=== PATIENT | male | born 1965 | race Caucasian/White ===

== ENCOUNTER 2023-11-30 14:29 | Emergency (ER) | payer OTHER, SELFPAY ==
--- NOTE | ~2023-11-30 | CT_ITS ---
EXAMINATION: CT CERVICAL SPINE WITHOUT CONTRAST CLINICAL INFORMATION: Mechanical fall, cervical spine injury and pain COMPARISON: None available. TECHNIQUE: Multiple 3.0 and 0.6 mm axial images were obtained from base of skull to T1 levels without IV contrast enhancement. Sagittal and coronal 2.0 mm bone window images were reconstructed from axial image data. This CT examination was performed using dose optimization techniques as appropriate, variously including the following: *Automated exposure control *Adjustment of mA and/or kV according to patient size (this includes techniques or standardized protocols for targeted exams where dose is matched to indication/reason for exam; i.e. extremities or head) *Use of iterative reconstruction technique DLP: 790.16 mGy-cm FINDINGS: C1/C2: Bony structures are intact with normal alignment. There is no spinal stenosis. C2/C3: Bony structures are intact with normal alignment. There is no spinal stenosis. Bilateral C2/C3 neuroforamina are patent. Bilateral apophyseal joints are intact with normal alignment. C3/C4: Bony structures are intact with normal alignment. There is no spinal stenosis. Bilateral C3/C4 neuroforamina are patent. Bilateral apophyseal joints are intact with normal alignment. C4/C5: Bony structures are intact with normal alignment. There is no spinal stenosis. Bilateral C4/C5 neuroforamina are patent. Bilateral apophyseal joints are intact with normal alignment. C5/C6: Bony structures are intact with normal alignment. There is no spinal stenosis. Bilateral C5/C6 neuroforamina are patent. Bilateral apophyseal joints are intact with normal alignment. C6/C7: Bony structures are intact with normal alignment. There is no spinal stenosis. Bilateral C6/C7 neuroforamina are patent. Bilateral apophyseal joints are intact with normal alignment. C7/T1: Bony structures are intact with normal alignment. There is no spinal stenosis. Bilateral C7/T1 neuroforamina are patent. Bilateral apophyseal joints are intact with normal alignment. CT/CT cervical spine wo IV con IMPRESSION: 1. Normal CT scan of the cervical spine. No cervical fracture or dislocation is seen. Fleischner guidelines were followed.
--- NOTE | ~2023-11-30 | CT_ITS ---
EXAMINATION: CT HEAD WITHOUT CONTRAST (STROKE PROTOCOL) CLINICAL INFORMATION: Stroke protocol. Left hemiparesis, possible head injury COMPARISON: None available. TECHNIQUE: Contiguous axial imaging was performed from the skull base to vertex without intravenous administration of contrast. This CT examination was performed using dose optimization techniques as appropriate, variously including the following: *Automated exposure control *Adjustment of mA and/or kV according to patient size (this includes techniques or standardized protocols for targeted exams where dose is matched to indication/reason for exam; i.e. extremities or head) *Use of iterative reconstruction technique DLP: 817.05 mGy-cm FINDINGS: Ventricles, sulci and cisterns are prominent. There is no midline shift, no abnormal intra- or extra- axial fluid accumulation. Crowley and white matter differentiation is normal. Bone window images show no evidence of skull fracture. CT/CT head for stroke IMPRESSION: 1. Mildly atrophic appearance of brain. 2. No intracranial hemorrhage or skull fracture is seen. 3. No evidence of space occupying lesion could be found. 4. The current plain CT scan of the brain shows no diagnostic evidence of acute cerebral infarction. This critical result was discussed with Dr. Fidel Hagen at 1458 hours on 11/30/2023. It was ascertained that the content and urgency of the report was understood at the time of direct communication.
--- NOTE | 2023-11-30 14:35 | ED_ITS ---
HPI - General Adult General Chief complaint: Stroke Stated complaint: STOKE ALERT,SLUR/L DEFICIT,SYNCOPE PER EMS Time Seen by Provider: 11/30/23 14:35 History of Present Illness HPI narrative: The patient is a 58-year-old male with a history of type 2 diabetes who also has a history of depression who is currently an inpatient at the [facility]. He was admitted to that hospital from the emergency room at [facility] 3 or 4 days ago. He had been depressed and made significant lacerations to his left arm requiring staple closures. Today the patient stood up after urinating and felt lightheaded and collapsed. Staff at [facility] thought that there was some difficulty speaking and left- sided weakness. An ambulance was called and he was brought to the hospital. The patient was quite vague about what he thought had happened. He thought he probably did not hit his head but was not sure. He does not feel that he has significant neck pain. He thought that perhaps he had a funny sensation throughout his body but he does not really feel like he definitely had unilateral weakness. The patient says that he has had similar episodes of lightheadedness in the past and sometimes he has fainted before. Related Data Allergies Allergy/AdvReac Type Severity Reaction Status Date / Time No Known Allergies Allergy Verified 11/30/23 15:31 Review of Systems 2 Review of Systems: Yes all other systems are reviewed and are negative [facility] Social History Social History Advance Directives: No Advance Directives Information Provided: No Do you have a plan to hurt others: No Plan Physical Exam ED Vital Signs: Vital Signs - 24 hr 11/30/23 15:20 11/30/23 15:36 Temperature 97.6 F 97.2 F Pulse Rate 93 91 Respiratory Rate 17 16 Blood Pressure 128/74 103/79 Pulse Oximetry 94 98 Oxygen Delivery Method Room Air Room Air BMI result Body Mass Index 44.4 Const Other: The patient is an obese, somewhat chronically ill-appearing 58-year-old who was awake and alert. He had a very vague demeanor. HENMT Other: No definite facial asymmetry. Tongue was midline. Eyes Other: Pupils are round equal, lateral gaze is intact, extraocular movements are intact in all directions, no nystagmus, visual herrera are intact to confrontation. Neck Other: The patient was very vague about whether he had any posterior C-spine tenderness. Resp Effort & Inspection: normal respiratory effort Auscultation: clear to auscultation bilaterally Cardio Rate: regular rate Rhythm: regular rhythm Heart sounds: S1 normal heart sound present and S2 normal heart sound present GI Other: The patient has a large abdomen that is soft and nontender Skin Other: The patient has sutured lacerations on the left forearm with some suture line erythema but without definite signs of infection. The skin is otherwise pale and dry. Neuro Other: The patient is awake and alert and appropriately oriented. He can tell me the correct month and the date. He can follow directions correctly. He has a slightly asymmetrical face but I think this is his baseline. His active facial movements are symmetrical. His speech is without aphasia or dysarthria. Strength is symmetrical. No pronator drift. Finger-nose is normal. He was quite stiff and had difficulty with heel-gonzales because of generalized stiffness. He was able to walk steadily without assistive devices or support. NIH stroke scale is 0. Extrem Other: The patient has 3 sutured lacerations on his left arm but he is moving the arm well. No peripheral edema. Medications Administered Discontinued Medications Generic Name Dose Route Start Last Admin Trade Name Freq PRN Reason Stop Dose Admin Insulin Human Lispro 20 unit 11/30/23 17:03 11/30/23 17:26 Insulin Lispro 100 Unit/Ml 3 Ml Vial SUBCUT 11/30/23 17:04 20 unit ONCE ONE Administration Medical Decision Making Medical Decision Making [facility] Narrative: The patient is a morbidly obese 58-year-old with type 2 diabetes who describes an episode of collapse after standing from the toilet following urination. There was a question of whether he might have some left-sided weakness. My neurological exam does not suggest the presence of any ongoing neurological deficits. He was not hypertensive. My overall impression was that it was unlikely that he was having a stroke. He had a normal CT of the brain and a negative cervical spine CT. His labs are unremarkable aside from hyperglycemia. He was given 20 units of lispro insulin based on the sliding scale he normally has at at the psychiatric facility. Overall I think this was more of an orthostatic syncopal episode than it stroke syndrome. He seems stable and I think he may return to the psychiatric facility. He should follow up with his PCP. Lab Data 11/30/23 16:49 11/30/23 16:49 Labs: Lab Results 11/30/23 11/30/23 11/30/23 Range/Units 14:34 15:15 16:48 WBC (4.8-10.8) X10*3/uL RBC (4.60-5.80) X10*6/uL Hgb (14.0-18.0) g/dl Hct (42.0-52.0) % MCV (80.0-98.0) fL MCH (27.0-33.0) pg MCHC (31.0-36.0) g/dl RDW (11.0-16.0) % Plt Count (160-400) X10*3/uL MPV (9.4-12.4) fL Immature Gran % (Auto) (0.0-0.4) % Neut % (Auto) (45-73) % Lymph % (Auto) (20-40) % [place] % (Auto) (2-11) % Eos % (Auto) (0-4) % Baso % (Auto) (0-2) % Lymph # (Auto) (1.2-4.9) X10*3/uL [place] # (Auto) (0.1-1.2) X10*3/uL Eos # (Auto) (0.0-0.4) X10*3/uL Baso # (Auto) (0.0-0.2) X10*3/uL Abs Immat Gran (auto) (0.00-0.03) X10*3/uL Absolute Neuts (auto) (2.0-8.3) x10*3/uL Absolute Nucleated RBC (0.0-0.012) X10*3/uL Nucleated RBC % (auto) (0.0-0.2) /100WBC PT (11.1-13.3) SEC Whole Blood PT 12.2 (11.1-13.5) sec INR (0.9-1.1) Whole Blood INR 1.0 (0.9-1.1) APTT (26.0-36.8) SEC Sodium (135-145) mmol/L Potassium (3.3-5.1) mmol/L Chloride (96-108) mmol/L Carbon Dioxide (22-29) mmol/L Anion Gap (12-20) BUN (9-16) mg/dL Creatinine (0.5-1.4) mg/dL Estim Creat Clear Calc Estimated GFR POC Glucose 479 H* (60-115) mg/dL Random Glucose (60-115) mg/dL Calcium (8.4-10.2) mg/dL Total Creatine Kinase (38-174) U/L Troponin I High Sens 5.4 (<3.5-35.0) ng/L Ethyl Alcohol mg/dL 11/30/23 Range/Units 16:49 WBC 7.1 (4.8-10.8) X10*3/uL RBC 4.76 (4.60-5.80) X10*6/uL Hgb 13.6 L (14.0-18.0) g/dl Hct 39.9 L (42.0-52.0) % MCV 83.8 (80.0-98.0) fL MCH 28.6 (27.0-33.0) pg MCHC 34.1 (31.0-36.0) g/dl RDW 14.6 (11.0-16.0) % Plt Count 178 (160-400) X10*3/uL MPV 11.8 (9.4-12.4) fL Immature Gran % (Auto) 1.6 H (0.0-0.4) % Neut % (Auto) 57.9 (45-73) % Lymph % (Auto) 29.0 (20-40) % [place] % (Auto) 8.2 (2-11) % Eos % (Auto) 2.5 (0-4) % Baso % (Auto) 0.8 (0-2) % Lymph # (Auto) 2.1 (1.2-4.9) X10*3/uL [place] # (Auto) 0.6 (0.1-1.2) X10*3/uL Eos # (Auto) 0.2 (0.0-0.4) X10*3/uL Baso # (Auto) 0.1 (0.0-0.2) X10*3/uL Abs Immat Gran (auto) 0.11 H (0.00-0.03) X10*3/uL Absolute Neuts (auto) 4.1 (2.0-8.3) x10*3/uL Absolute Nucleated RBC 0.000 (0.0-0.012) X10*3/uL Nucleated RBC % (auto) 0.0 (0.0-0.2) /100WBC PT 10.8 L (11.1-13.3) SEC Whole Blood PT (11.1-13.5) sec INR 0.9 (0.9-1.1) Whole Blood INR (0.9-1.1) APTT 33.3 (26.0-36.8) SEC Sodium 133 L (135-145) mmol/L Potassium 4.7 (3.3-5.1) mmol/L Chloride 97 (96-108) mmol/L Carbon Dioxide 24 (22-29) mmol/L Anion Gap 17 (12-20) BUN 24 H (9-16) mg/dL Creatinine 1.08 (0.5-1.4) mg/dL Estim Creat Clear Calc 103.5 Estimated GFR > 60 POC Glucose (60-115) mg/dL Random Glucose 486 H* (60-115) mg/dL Calcium 9.2 (8.4-10.2) mg/dL Total Creatine Kinase 128 (38-174) U/L Troponin I High Sens (<3.5-35.0) ng/L Ethyl Alcohol < 10 mg/dL Discharge Plan Discharge Clinical Impression: Episode of syncope Patient Disposition: Home, Self-Care Additional Instructions: Your testing in the emergency room today is very reassuring. I would recommend that you increase your fluid intake. I think that perhaps you may be having some mild low-grade dehydration predispose you to feeling lightheaded when you stand up. Therefore please continue your current medications as managed by your doctors at [facility]. Please plan on following up with your regular primary care doctor when you were discharged from [facility]. Return to the emergency room if significantly worse. Referrals: [facility] [Outside] Luke Welsh DO, MD [Physician] - Print Language: Irish
--- NOTE | 2023-11-30 14:37 | ECG_ITS ---
Test Reason : RULE OUT STROKE Blood Pressure : / mmHG Vent. Rate : 091 BPM Atrial Rate : 091 BPM P-R Int : 170 ms QRS Dur : 082 ms QT Int : 370 ms P-R-T Axes : 056 033 040 degrees QTc Int : 455 ms Normal sinus rhythm Normal ECG No previous ECGs available Referred By: Fidel Veliz Electronically Signed By:CARMITA GIORDANO MD
[2023-11-30 14:39] LABS: Glucose, Whole Blood 479 mg/dL (60-115)
[2023-11-30 15:20] VITALS: BP 128/74; PULSE 93; RESP 17; TEMP 36.4; O2SAT 94; BMI 44.4
[2023-11-30 15:20] LABS: Prothrombin Time Whole Bld POC 12.2 sec (11.1-13.5)
[2023-11-30 15:36] VITALS: BP 103/79; PULSE 91; RESP 16; TEMP 36.2; O2SAT 98
--- NOTE | 2023-11-30 16:19 | MHC.EDTECH ---
PATIENT REFUSED LABS PROVIDER AND RN AWARE .
[2023-11-30 16:52] LABS: MANUAL DIFF FLAG NO
[2023-11-30 16:55] LABS: Basophils Absolute Auto 0.1 X10*3/uL (0.0-0.2); Basophils Percent Auto 0.8 % (0-2); Eosinophils Absolute Auto 0.2 X10*3/uL (0.0-0.4); Eosinophils Percent Auto 2.5 % (0-4); Hematocrit 39.9 % (42.0-52.0); Hemoglobin 13.6 g/dl (14.0-18.0); Imm Gran Abs Auto 0.11 X10*3/uL (0.00-0.03); Imm Gran Pct Auto 1.6 % (0.0-0.4); Lymphocytes Absolute Auto 2.1 X10*3/uL (1.2-4.9); Mean Corpuscular HGB Conc 34.1 g/dl (31.0-36.0); Mean Corpuscular Hemoglobin 28.6 pg (27.0-33.0); Mean Corpuscular Volume 83.8 fL (80.0-98.0); Mean Platelet Volume 11.8 fL (9.4-12.4); Monocytes Absolute Auto 0.6 X10*3/uL (0.1-1.2); Monocytes Percent Auto 8.2 % (2-11); Neutrophils Absolute Auto 4.1 x10*3/uL (2.0-8.3); Neutrophils Percent Auto 57.9 % (45-73); Platelet Count 178 X10*3/uL (160-400); Red Blood Count 4.76 X10*6/uL (4.60-5.80); Red Cell Distribution Width 14.6 % (11.0-16.0); White Blood Count 7.1 X10*3/uL (4.8-10.8)
[2023-11-30 16:59] LABS: INTERNATIONAL NORM RATIO 0.9 (0.9-1.1); Prothrombin Time 10.8 SEC (11.1-13.3)
[2023-11-30 17:01] LABS: Partial Thromboplastin Time 33.3 SEC (26.0-36.8)
[2023-11-30 17:17] LABS: Troponin-I High Sensitivity 5.4 ng/L (<3.5-35.0)
[2023-11-30 17:17] LABS: Anion Gap 17 (12-20); Blood Urea Nitrogen 24 mg/dL (9-16); Calcium 9.2 mg/dL (8.4-10.2); Carbon Dioxide 24 mmol/L (22-29); Chloride 97 mmol/L (96-108); Creatinine Clr Calc Pharmacy 103.5; Estimated Glomerular Filt Rate > 60; Ethanol < 10 mg/dL; Glucose Random 486 mg/dL (60-115); Potassium 4.7 mmol/L (3.3-5.1); Sodium 133 mmol/L (135-145)
[2023-11-30] MEDS: Insulin Lispro 100 UNIT/ML 3 ML VIAL 20 UNIT SUBCUT (17:26)
--- NOTE | 2023-11-30 17:28 | PC.NURSE ---
Patient with noted elevated blood sugar greater than 400. Per order from Dr Veliz patient given 20 units of short acting insulin.
[2023-11-30 17:43] VITALS: BP 159/91; PULSE 91; RESP 16; TEMP 36.8; O2SAT 96
--- NOTE | 2023-11-30 17:52 | MHC.EDTECH ---
PATIENT BLOOD SUGAR WAS TAKEN ,MACHINE READ HI ,QC WAS DONE ,AND PATIENT BLOOD SUGAR WAS RE CHECK AND IT READ 526,RN AURELIANO LAMAS .
--- NOTE | 2023-11-30 17:56 | PC.NURSE ---
Recheck of blood sugar noted to still be elevated, Dr Veliz notified, no new orders at this time.
[2023-11-30 18:03] LABS: Glucose, Whole Blood > 600 mg/dL (60-115)
[2023-11-30 18:03] LABS: Glucose, Whole Blood 62 mg/dL (60-115)
[2023-11-30 18:03] LABS: Glucose, Whole Blood 526 mg/dL (60-115)
[2023-11-30 19:30] VITALS: BP 169/83; PULSE 89; RESP 16; TEMP 36.6; O2SAT 97
[2023-11-30 19:36] LABS: Stroke Lab Use COMPLETE
[2023-11-30 20:32] VITALS: BP 162/76; PULSE 85; RESP 16; TEMP 36.8; O2SAT 99
[2023-11-30 20:40] VITALS: BP 162/76; PULSE 85; RESP 16; TEMP 36.8; O2SAT 99
[2023-11-30 21:15] LABS: Glucose, Whole Blood 482 mg/dL (60-115)
[2023-12-01 06:46] LABS: Glucose, Whole Blood 452 mg/dL (60-115)
== END 2023-11-30 20:40 | disposition home or self-care (01) ==
PROVIDERS: Emergency Provider Emergency Medicine
DX: R42 Dizziness and giddiness (principal); M54.2 Cervicalgia; R47.9 Unspecified speech disturbances; E11.65 Type 2 diabetes mellitus with hyperglycemia; Z79.899 Other long term (current) drug therapy
CPT/HCPCS: 36415; 70450; 72125; 80048; 80307; 82550; 82947; 84484; 85025; 85610; 85730; 93005; 99285

== ENCOUNTER → 2023-11-30 14:37 | Outpatient (BNV) | payer OTHER, SELFPAY | PROVIDERS: Emergency Provider Emergency Medicine; Visit Provider Internal Medicine Cardiovascular Disease | DX: R55 Syncope and collapse (principal) | CPT/HCPCS: 93010 ==

== ENCOUNTER 2023-12-03 18:35 | Emergency (ER) | payer OTHER, SELFPAY ==
--- NOTE | ~2023-12-03 | XR_ITS ---
EXAMINATION: XR CHEST CLINICAL INFORMATION: Weakness COMPARISON: None available. TECHNIQUE: AP upright view of the chest was obtained. FINDINGS: The lungs are hypoexpanded with bibasilar atelectasis. No focal consolidation, significant pleural effusion, pulmonary edema pneumothorax. The cardiomediastinal silhouette is upper limits normal for technique. No acute osseous abnormality. XR/XR chest 1V IMPRESSION: Low lung volumes with bibasilar atelectasis.
[2023-12-03 18:47] VITALS: BP 153/80; PULSE 90
--- NOTE | 2023-12-03 19:06 | ECG_ITS ---
Test Reason : WEAKNESS Blood Pressure : / mmHG Vent. Rate : 088 BPM Atrial Rate : 088 BPM P-R Int : 184 ms QRS Dur : 094 ms QT Int : 370 ms P-R-T Axes : 056 004 049 degrees QTc Int : 447 ms Normal sinus rhythm Septal infarct , age undetermined Abnormal ECG When compared with ECG of 30-NOV-2023 15:28, Septal infarct is now Present Referred By: Stan Roque Electronically Signed By:CARMITA GIORDANO MD
[2023-12-03 19:20] VITALS: BMI 42.8
[2023-12-03 19:23] VITALS: BP 163/92; PULSE 92; RESP 19; TEMP 36.8; O2SAT 95
[2023-12-03 19:27] LABS: Glucose, Whole Blood 535 mg/dL (60-115)
--- NOTE | 2023-12-03 19:28 | ED_ITS ---
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 The patient denies any pain at this time. He reports ?feeling out of it. ? Denies any recent falls No other complaints or concerns at this time Related Data Allergies Allergy/AdvReac Type Severity Reaction Status Date / Time No Known Allergies Allergy Verified 12/03/23 19:20 Review of Systems 2 Constitutional: Constitutional: Denies body ache(s), Denies chills, Denies fever(s) and Denies headache(s) Eyes: Eyes: Denies blurry vision ENT: Denies headache(s) and Denies sore throat Cardiovascular: Cardiovascular: Denies chest pain and Denies dyspnea Respiratory: Respiratory: Denies cough and Denies dyspnea Gastrointestinal: Gastrointestinal: Denies abdominal pain, Denies nausea and Denies vomiting Genitourinary: Genitourinary: Denies dysuria Musculoskeletal: Musculoskeletal: Denies back pain Integumentary/Breasts: Skin/Breast: Denies rash Neurologic: Denies headache(s) Psychiatric: Psychiatric: Denies anxiety [facility] Social History Social History Alcohol intake: never Advance Directives: No Advance Directives Information Provided: No Do you have a plan to hurt others: No Plan Physical Exam ED Vital Signs: Vital Signs - 24 hr 12/03/23 19:23 12/03/23 20:02 12/03/23 21:08 Temperature 98.3 F 97.7 F 97.9 F Pulse Rate 92 90 95 Respiratory Rate 19 18 19 Blood Pressure 163/92 H 158/75 H 137/78 Pulse Oximetry 95 96 95 Oxygen Delivery Method Room Air Room Air Room Air BMI result Body Mass Index 42.8 Const General: healthy appearing, comfortable, no acute distress, alert and awake Nutritional Appearance: well nourished and obese Orientation/consciousness: patient oriented x3 HENMT Head: Yes normocephalic and Yes atraumatic Eyes Eyelids: Yes eyelids normal Conjunctivae: conjunctivae normal Sclerae: sclerae normal Corneas: corneas normal Pupils: Equal, round and reactive pupils present EOM: EOMs intact bilaterally Neck Neck: Yes full ROM Resp Effort & Inspection: normal respiratory effort, able to speak in complete sentences and not labored Cardio Rate: regular rate Rhythm: regular rhythm GI Other: Ecchymosis to the lower abdomen Inspection: No distended Palpation (GI): Soft to palpation, not firm, nontender, no guarding and not rigid Skin General skin exam: elasticity normal Neuro General: patient oriented x3 Cranial nerves: Yes Equal, round and reactive pupils present and Yes Bilaterally intact EOM present Cognition (Neuro): normal cognition Extrem Other: Moving all extremities well without any obvious deformities Course Reevaluation(s) Reevaluation #1: Patient's workup was significant for isolated hyperglycemia, no evidence of DKA. He received 2 L of IV fluids, 2 units of IV insulin. His sugar decreased to 371 and he pulled his IV out. Given there is no evidence of DKA. We will discharge the patient after giving him 1 more dose of subcutaneous insulin lispro 10 units. Time: 22:17 Medications Administered Discontinued Medications Generic Name Dose Route Start Last Admin Trade Name Freq PRN Reason Stop Dose Admin Sodium Chloride 1,000 mls @ 999 mls/hr 12/03/23 19:15 12/03/23 21:45 Ns IV 12/03/23 20:15 Infused .Q1H1M RORY Infusion Sodium Chloride 1,000 mls @ 999 mls/hr 12/03/23 20:30 12/03/23 21:04 Ns IV 12/03/23 21:30 999 mls/hr .Q1H1M RORY Administration Insulin Human Regular 10 unit 12/03/23 19:40 12/03/23 19:50 Insulin Regular, Human 100 Unit/Ml 3 Ml Vial IVPUSH 12/03/23 19:41 10 unit ONCE ONE Administration Lorazepam 2 mg 12/03/23 19:54 12/03/23 20:00 Lorazepam 2 Mg/Ml Vial IVPUSH 12/03/23 19:55 2 mg ONCE ONE Administration Medical Decision Making Medical Decision Making [facility] Narrative: 58-year-old male past medical history significant for diabetes presents for evaluation of a blood glucose over 500 at [facility]. He is currently there for suicidal ideation. He denies any pain, he does have some bruising to the abdomen which is likely from his insulin injections. He is not on any blood thinners. Plan for medical workup including labs beta hydroxybutyrate. He does endorse some shortness of breath but his oxygen saturation is 95% on room air. Will obtain chest x-ray, viral swabs Differential Diagnosis Differential Diagnoses: The differential diagnosis associated with the presentation includes Hyperglycemia HHS DKA Hypovolemia Dehydration DEWAYNE Metabolic encephalopathy Pneumonia CHF Sleep apnea Admission/Observation Consideration of admission/observation: Escalation of care including admission/observation considered Patient will require admission if he meets criteria for DKA Lab Data [facility] Lab Attestation statement: I reviewed the patient's lab results. No leukocytosis. The patient has a mild anemia that is consistent with his labs from a few days ago. This is normocytic. He has no left shift. He has a pseudo hyponatremia of 131. Once corrected for his hyperglycemia is within normal limits. Potassium is within normal limits there is no anion gap. Carbon dioxide is within normal limits. No evidence of DKA. Patient's glucose down to 371 12/03/23 19:28 12/03/23 19:49 Labs: Lab Results 12/03/23 12/03/23 12/03/23 Range/Units 19:24 19:28 19:49 WBC 5.6 (4.8-10.8) X10*3/uL RBC 4.54 L (4.60-5.80) X10*6/uL Hgb 13.1 L (14.0-18.0) g/dl Hct 37.7 L (42.0-52.0) % MCV 83.0 (80.0-98.0) fL MCH 28.9 (27.0-33.0) pg MCHC 34.7 (31.0-36.0) g/dl RDW 14.6 (11.0-16.0) % Plt Count 183 (160-400) X10*3/uL MPV 12.3 (9.4-12.4) fL Immature Gran % (Auto) 1.4 H (0.0-0.4) % Neut % (Auto) 52.9 (45-73) % Lymph % (Auto) 33.7 (20-40) % [place] % (Auto) 7.9 (2-11) % Eos % (Auto) 3.2 (0-4) % Baso % (Auto) 0.9 (0-2) % Lymph # (Auto) 1.9 (1.2-4.9) X10*3/uL [place] # (Auto) 0.4 (0.1-1.2) X10*3/uL Eos # (Auto) 0.2 (0.0-0.4) X10*3/uL Baso # (Auto) 0.1 (0.0-0.2) X10*3/uL Abs Immat Gran (auto) 0.08 H (0.00-0.03) X10*3/uL Absolute Neuts (auto) 3.0 (2.0-8.3) x10*3/uL Absolute Nucleated RBC 0.000 (0.0-0.012) X10*3/uL Nucleated RBC % (auto) 0.0 (0.0-0.2) /100WBC Sodium 131 L (135-145) mmol/L Potassium 4.9 (3.3-5.1) mmol/L Chloride 97 (96-108) mmol/L Carbon Dioxide 26 (22-29) mmol/L Anion Gap 13 (12-20) BUN 31 H (9-16) mg/dL Creatinine 1.21 (0.5-1.4) mg/dL Estim Creat Clear Calc 93.2 Estimated GFR > 60 POC Glucose 535 H* (60-115) mg/dL Random Glucose 572 H* (60-115) mg/dL Calcium 8.3 L D (8.4-10.2) mg/dL Total Bilirubin 0.2 (0.0-1.0) mg/dL AST 42 H (5-37) U/L ALT 64 H (0-40) U/L Alkaline Phosphatase 95 (39-117) U/L Total Protein 6.2 L (6.5-8.0) g/dL Albumin 3.3 L (3.5-5.0) g/dL Lipase 51 (8-78) U/L Beta-Hydroxybutyrate 0.10 (0.02-0.27) mmol/L Urine Color Yellow Urine Appearance Clear Urine pH 6.0 (5.0-9.0) Ur Specific [place] 1.010 (1.005-1.025) Urine Protein 100 (2+) H (Neg-Trace) mg/dL Urine Glucose (UA) >=1000 H (Negative) mg/dL Urine Ketones Negative (Negative) mg/dL Urine Blood Trace (Negative) Urine Nitrite Negative (Negative) Ur Leukocyte Esterase Negative (Negative) Urine RBC 0-2 (0-2) /HPF Urine WBC 0-5 (0-5) /HPF Ur Squamous Epith Cells 0-2 (0-2) /HPF Urine Bacteria None Seen (None Seen) Hyaline Casts 0-2 (0-2) /LPF Influenza Type A (PCR) NEGATIVE (Negative) Influenza Type B (PCR) NEGATIVE (Negative) RSV RNA Qual (PCR) NEGATIVE (Negative) SARS-CoV-2 RNA (RT-PCR) NEGATIVE (Negative) 12/03/23 12/03/23 Range/Units 20:49 21:56 WBC (4.8-10.8) X10*3/uL RBC (4.60-5.80) X10*6/uL Hgb (14.0-18.0) g/dl Hct (42.0-52.0) % MCV (80.0-98.0) fL MCH (27.0-33.0) pg MCHC (31.0-36.0) g/dl RDW (11.0-16.0) % Plt Count (160-400) X10*3/uL MPV (9.4-12.4) fL Immature Gran % (Auto) (0.0-0.4) % Neut % (Auto) (45-73) % Lymph % (Auto) (20-40) % [place] % (Auto) (2-11) % Eos % (Auto) (0-4) % Baso % (Auto) (0-2) % Lymph # (Auto) (1.2-4.9) X10*3/uL [place] # (Auto) (0.1-1.2) X10*3/uL Eos # (Auto) (0.0-0.4) X10*3/uL Baso # (Auto) (0.0-0.2) X10*3/uL Abs Immat Gran (auto) (0.00-0.03) X10*3/uL Absolute Neuts (auto) (2.0-8.3) x10*3/uL Absolute Nucleated RBC (0.0-0.012) X10*3/uL Nucleated RBC % (auto) (0.0-0.2) /100WBC Sodium (135-145) mmol/L Potassium (3.3-5.1) mmol/L Chloride (96-108) mmol/L Carbon Dioxide (22-29) mmol/L Anion Gap (12-20) BUN (9-16) mg/dL Creatinine (0.5-1.4) mg/dL Estim Creat Clear Calc Estimated GFR POC Glucose 431 H* 371 H* (60-115) mg/dL Random Glucose (60-115) mg/dL Calcium (8.4-10.2) mg/dL Total Bilirubin (0.0-1.0) mg/dL AST (5-37) U/L ALT (0-40) U/L Alkaline Phosphatase (39-117) U/L Total Protein (6.5-8.0) g/dL Albumin (3.5-5.0) g/dL Lipase (8-78) U/L Beta-Hydroxybutyrate (0.02-0.27) mmol/L Urine Color Urine Appearance Urine pH (5.0-9.0) Ur Specific [place] (1.005-1.025) Urine Protein (Neg-Trace) mg/dL Urine Glucose (UA) (Negative) mg/dL Urine Ketones (Negative) mg/dL Urine Blood (Negative) Urine Nitrite (Negative) Ur Leukocyte Esterase (Negative) Urine RBC (0-2) /HPF Urine WBC (0-5) /HPF Ur Squamous Epith Cells (0-2) /HPF Urine Bacteria (None Seen) Hyaline Casts (0-2) /LPF Influenza Type A (PCR) (Negative) Influenza Type B (PCR) (Negative) RSV RNA Qual (PCR) (Negative) SARS-CoV-2 RNA (RT-PCR) (Negative) Discharge Plan Discharge Clinical Impression: Acute hyperglycemia Patient Disposition: Xfer Psychiatric Hosp Transfer Details: [facility]as[facility] Instructions: Diabetic Hyperglycemia (ED) Additional Instructions: Take all your medications as prescribed. Drink lots of water. Decrease sugary food consumption Follow-up with the primary doctor Return for new or worsening symptoms Print Language: Kyrgyz
[2023-12-03] MEDS: 0.9 % Sodium Chloride 1,000 ML 999 ML IV ×2 (19:30→21:04)
[2023-12-03 19:34] LABS: MANUAL DIFF FLAG NO
--- NOTE | 2023-12-03 19:37 | MHC.EDTECH ---
This tech took over care of this patient at 1900,patient was changed into crisis attire,placed on the order booker vitals taken,POC taken and is 535 RN Flor made aware,EKG taken per order and signed by provider,Patient urinated 650MLS of clear yellow urine in the urinal,labs and urine sample obtained and sent to lab,this tech will be the 1-1 sitter at bedside for safety
[2023-12-03 19:38] LABS: Appearance Urine Clear; Basophils Absolute Auto 0.1 X10*3/uL (0.0-0.2); Basophils Percent Auto 0.9 % (0-2); Color Urine Yellow; Eosinophils Absolute Auto 0.2 X10*3/uL (0.0-0.4); Eosinophils Percent Auto 3.2 % (0-4); Glucose Urine UA >=1000 mg/dL (Negative); Hematocrit 37.7 % (42.0-52.0); Hemoglobin 13.1 g/dl (14.0-18.0); Imm Gran Abs Auto 0.08 X10*3/uL (0.00-0.03); Imm Gran Pct Auto 1.4 % (0.0-0.4); Leukocyte Esterase Urine Negative (Negative); Lymphocytes Absolute Auto 1.9 X10*3/uL (1.2-4.9); Lymphocytes Percent Auto 33.7 % (20-40); Mean Corpuscular HGB Conc 34.7 g/dl (31.0-36.0); Mean Corpuscular Hemoglobin 28.9 pg (27.0-33.0); Mean Platelet Volume 12.3 fL (9.4-12.4); Monocytes Absolute Auto 0.4 X10*3/uL (0.1-1.2); Monocytes Percent Auto 7.9 % (2-11); Neutrophils Percent Auto 52.9 % (45-73); Nitrite Urine Negative (Negative); Platelet Count 183 X10*3/uL (160-400); Red Blood Count 4.54 X10*6/uL (4.60-5.80); Red Cell Distribution Width 14.6 % (11.0-16.0); UMIC TRIGGER UACC YES; Urine Blood Trace (Negative); Urine Ketones Negative (Negative); Urine Protein 100 (2+) mg/dL (Neg-Trace); White Blood Count 5.6 X10*3/uL (4.8-10.8)
[2023-12-03 19:41] LABS: Bacteria Urine None Seen (None Seen); Hyaline Casts Urine 0-2 /LPF (0-2); RBC Urine 0-2 /HPF (0-2); Squamous Epithelial Cell Urine 0-2 /HPF (0-2); WBC Urine 0-5 /HPF (0-5)
--- NOTE | 2023-12-03 19:46 | MHC.EDTECH ---
Patient came in with shirt and sweatpants only,belongings list completed and locked in locker 11 in the POD.
[2023-12-03] MEDS: Insulin Regular, Human 100 UNIT/ML 3 ML VIAL 10 UNIT IVPUSH (19:50)
[2023-12-03] MEDS: LORazepam 2 MG/ML VIAL IVPUSH (20:00)
[2023-12-03 20:02] VITALS: BP 158/75; PULSE 90; RESP 18; TEMP 36.5; O2SAT 96
[2023-12-03 20:10] LABS: Alanine Aminotransferase 64 U/L (0-40); Albumin Level 3.3 g/dL (3.5-5.0); Alkaline Phosphatase 95 U/L (39-117); Anion Gap 13 (12-20); Aspartate Amino Transferase 42 U/L (5-37); Bilirubin Total 0.2 mg/dL (0.0-1.0); Blood Urea Nitrogen 31 mg/dL (9-16); Calcium 8.3 mg/dL (8.4-10.2); Carbon Dioxide 26 mmol/L (22-29); Chloride 97 mmol/L (96-108); Creatinine Clr Calc Pharmacy 93.2; Estimated Glomerular Filt Rate > 60; Glucose Random 572 mg/dL (60-115); Lipase 51 U/L (8-78); Potassium 4.9 mmol/L (3.3-5.1); Sodium 131 mmol/L (135-145); Total Protein 6.2 g/dL (6.5-8.0)
[2023-12-03 20:14] LABS: Influenza A PCR NEGATIVE (Negative); Influenza B PCR NEGATIVE (Negative); Resp Syncy Virus RNA Qual PCR NEGATIVE (Negative); SARS COV2 PCR INHOUSE NEGATIVE (Negative)
--- NOTE | 2023-12-03 20:20 | MHC.EDTECH ---
Patient urinated 200MLS in urinal.
[2023-12-03 20:54] LABS: Glucose, Whole Blood 431 mg/dL (60-115)
[2023-12-03 21:08] VITALS: BP 137/78; PULSE 95; RESP 19; TEMP 36.6; O2SAT 95
--- NOTE | 2023-12-03 21:15 | MHC.EDTECH ---
Vitals and hourly rounds completed,patient urinated 450MLS in urinal
[2023-12-03 22:01] LABS: Glucose, Whole Blood 371 mg/dL (60-115)
--- NOTE | 2023-12-03 22:25 | PC.NURSE ---
called nurse to nurse at [facility] to let them know he will be returning
[2023-12-03] MEDS: Insulin Lispro 100 UNIT/ML 3 ML VIAL 10 UNIT SUBCUT (22:30)
--- NOTE | 2023-12-03 22:41 | MHC.EDTECH ---
Patient urinated 350MLS in urinal,patient given a cup of diet george adriano
[2023-12-03] MEDS: hydrOXYzine HCL 50 MG TABLET PO (22:59)
[2023-12-03 23:14] VITALS: BP 137/78; PULSE 95; RESP 17; TEMP 36.1; O2SAT 95
== END 2023-12-03 23:27 ==
PROVIDERS: Physician Assistant; Emergency Provider Internal Medicine
DX: E11.65 Type 2 diabetes mellitus with hyperglycemia (principal); Z79.4 Long term (current) use of insulin; Z03.818 Encounter for observation for suspected exposure to other biological agents ruled out
CPT/HCPCS: 0241U; 36415; 71045; 80053; 81001; 82010; 82947; 83690; 85025; 93005; 96361; 96374; 96375; 99285; J2060

== ENCOUNTER → 2023-12-03 19:06 | Outpatient (BNV) | payer OTHER, SELFPAY | PROVIDERS: Emergency Provider Internal Medicine; Visit Provider Internal Medicine Cardiovascular Disease | DX: R94.31 Abnormal electrocardiogram [ECG] [EKG] (principal) | CPT/HCPCS: 93010 ==